=== PATIENT | male | born 1995 | race Caucasian/White ===

== ENCOUNTER 2025-02-18 13:41 | Outpatient (CLI) | payer OTHER, SELFPAY ==
[2025-02-18 15:08] LABS: Alanine Aminotransferase 18 U/L (6-50); Albumin Level 4.3 g/dL (3.5-5.1); Alkaline Phosphatase 56 U/L (38-126); Anion Gap 6 mmol/L (4-12); Aspartate Amino Transferase 23 U/L (17-59); Bilirubin,Total 0.8 mg/dL (0.2-1.3); Blood Urea Nitrogen 18 mg/dL (9-20); Calcium 9.2 mg/dL (8.4-10.2); Carbon Dioxide 30 mmol/L (22-30); Chloride 101 mmol/L (98-107); Cholesterol 104 mg/dL (0-200); Estimated Glomerular Filt Rate > 60; Glucose 75 mg/dL (65-110); HDL Direct 45 mg/dL; Potassium 3.8 mmol/L (3.4-5.0); Sodium 137 mmol/L (137-145); Total Protein 7.1 g/dL (6.3-8.2); Triglycerides 99 mg/dL (<150)
[2025-02-18 15:38] LABS: Thyroid Stimulating Hormone 0.882 uIU/mL (0.465-4.680)
[2025-02-19 07:09] LABS: FSH 3.3 mIU/mL (1.5-12.4)
[2025-02-19 11:08] LABS: LH 4.2 mIU/mL (1.7-8.6)
== END 2025-02-18 13:42 | disposition home or self-care (01) ==
DX: E29.1 Testicular hypofunction (principal)
CPT/HCPCS: 36415; 80053; 80061; 83001; 83002; 84146; 84443

== ENCOUNTER 2025-03-17 13:44 | Outpatient (CLI) | payer OTHER, SELFPAY ==
[2025-03-17 14:33] LABS: Hematocrit 42.0 % (42.0-52.0); Hemoglobin 14.5 g/dL (14.0-18.0)
[2025-03-17 18:13] LABS: Prostate Specific Antigen 1.4 ng/mL (< OR = 4.0)
[2025-03-20 10:08] LABS: Free Testosterone (Direct) 26.1 pg/mL (9.3-26.5)
[2025-03-22 15:09] LABS: Estradiol, Sensitive 41.1 pg/mL (8.0-35.0)
== END 2025-03-17 13:45 | disposition home or self-care (01) ==
DX: E29.1 Testicular hypofunction (principal)
CPT/HCPCS: 36415; 82670; 84153; 84402; 84403; 85014; 85018